=== PATIENT | male | born 1960 | race Two or more races ===

== ENCOUNTER 2020-07-22 15:30 | Emergency (ER) | payer OTHER ==
[2020-07-22 16:06] VITALS: BP 163/78; PULSE 77; TEMP 98.1; BMI 25.8
[2020-07-22] MEDS ORDERED: DIPHTH,PERTUSS(ACELL),TET 0.5 ML DISP.SYRIN IM ONE (17:18)
[2020-07-22] MEDS ORDERED: OCTREOTIDE ACETATE 100 MCG/1 ML ONE (17:20)
== END 2020-07-22 17:47 | disposition home or self-care (01) ==
LOC: JERFT 15:30
PROC: 0HQEXZZ Repair Left Lower Arm Skin, External Approach (ICD-10-PCS; principal; 2020-07-22)
PROC: 3E0234Z Introduction of Serum, Toxoid and Vaccine into Muscle, Percutaneous Approach (ICD-10-PCS; 2020-07-22)
DX: S51.812A Laceration without foreign body of left forearm, initial encounter (principal)
CPT/HCPCS: 90715; 99284-25

== ENCOUNTER 2020-07-30 14:16 | Emergency (ER) | payer SELFPAY ==
[2020-07-30 14:23] VITALS: BP 170/81; PULSE 76; TEMP 98.6; BMI 23.3
== END 2020-07-30 14:53 | disposition home or self-care (01) ==
LOC: JERFT 14:16
DX: Z48.02 Encounter for removal of sutures (principal)
CPT/HCPCS: 99281-25